=== PATIENT | female | born 1960 | race Caucasian/White ===

== ENCOUNTER 2018-03-24 11:47 | Outpatient (CLI) | payer OTHER | END 2018-03-24 11:48 | disposition home or self-care (01) | LOC: BICMRI 11:47 | PROVIDERS: ATTEND Orthopaedic Surgery | DX: M75.101 Unspecified rotator cuff tear or rupture of right shoulder, not specified as traumatic (principal); M62.511 Muscle wasting and atrophy, not elsewhere classified, right shoulder ==

== ENCOUNTER 2018-03-25 14:05 | Outpatient (CLI) | payer OTHER ==
[2018-03-25 15:27] LABS: #Basophils 0.1 thou/uL (0.0-0.2); #Eosinphils 0.1 thou/uL (0.0-0.7); #Lymphocytes 1.7 thou/uL (1.20-3.40); #Monocytes 0.3 thou/uL (0.11-0.59); #Neutrophils 4.2 thou/uL (1.40-6.50); %Basophils 1.3 % (0.0-1.0); %Eosinophils 0.8 % (0.0-10.0); %Lymphocytes 26.5 % (21.0-51.0); %Monocytes 5.2 % (0.0-10.0); %Neutrophils 66.1 % (42.0-75.0); Hemoglobin 13.7 g/dL (12.0-16.0); Mean Corpuscular HGB CONC 34.5 g/dL (32.0-36.0); Mean Corpuscular Hemoglobin 29.8 pg (27.0-31.0); Mean Corpuscular Volume 86.5 fL (78.0-98.0); Mean Platelet Volume 7.3 fL (7.4-10.4); Platelet Count 257 thou/uL (130-400); RBC Distribution Width 11.1 % (11.5-14.5); Red Blood Cell (RBC) Count 4.61 mill/uL (4.20-5.40); White Blood Cell (WBC) Count 6.3 thou/uL (4.8-10.8)
[2018-03-25 15:48] LABS: Anion Gap 12 mmol/L (10-20); BUN (Urea Nitrogen) 16 mg/dL (9.8-20.1); Calc. Creatinine Clearance 0 mL/min (70-130); Calcium 9.6 mg/dL (7.8-10.44); Carbon Dioxide 27 mmol/L (22-29); Chloride 105 mmol/L (98-107); Estimated GFR-MDRD 84; Glucose 98 mg/dL (70-105); Potassium 3.6 mmol/L (3.5-5.1); Sodium 140 mmol/L (136-145)
--- NOTE | 2018-03-26 13:42 | EKG ---
Test Reason : Blood Pressure : / mmHG Vent. Rate : 094 BPM Atrial Rate : 094 BPM P-R Int : 136 ms QRS Dur : 096 ms QT Int : 370 ms P-R-T Axes : 024 072 021 degrees QTc Int : 462 ms Normal sinus rhythm Normal ECG No previous ECGs available Confirmed by JOSEE PRITCHETT ([id number]) on 03/26/2018 1:42:33 PM Referred By: DOMINIQUE Confirmed By:JOSEE PRITCHETT
== END 2018-03-25 14:06 | disposition home or self-care (01) ==
LOC: LABBT 14:05
PROVIDERS: ATTEND Orthopaedic Surgery
DX: Z01.818 Encounter for other preprocedural examination (principal); M75.101 Unspecified rotator cuff tear or rupture of right shoulder, not specified as traumatic
CPT/HCPCS: 80048; 85025; 93005; 93010

== ENCOUNTER 2018-04-01 07:08 | Day surgery (SDC) | payer OTHER ==
[2018-03-25 14:28] VITALS: BMI 25.3
[2018-04-01] MEDS ORDERED: Fentanyl 100 MCG/2 ML VIAL ONE ×2 (07:40→07:52)
[2018-04-01] MEDS ORDERED: Midazolam HCl 2 mg/2 ml Vial ONE ×2 (07:40→07:52)
[2018-04-01] MEDS ORDERED: Ondansetron HCl/PF 4 MG/2 ML Vial IVP PRN (08:05)
[2018-04-01] MEDS ORDERED: Promethazine HCl 25 MG/ML VIAL IM PRN (08:05)
[2018-04-01] MEDS ORDERED: HYDROcodone/Acetaminophen 10/325 mg Tablet PO PRN ×2 (08:05)
[2018-04-01] MEDS ORDERED: Zolpidem Tartrate 5 MG TAB PO PRN (08:05)
[2018-04-01] MEDS ORDERED: traMADol HCl 50 MG TAB PO PRN ×2 (08:05)
[2018-04-01] MEDS ORDERED: Ropivacaine HCl/PF 1,100 MG in Sodium Chloride 0.9% 440 ML NERVE BLCK SCH (08:05)
[2018-04-01] MEDS ORDERED: Ketorolac Tromethamine 30 MG/ML VIAL IVP PRN (08:05)
[2018-04-01] MEDS ORDERED: Fentanyl 100 MCG/2 ML VIAL IV PRN (08:06)
[2018-04-01] MEDS ORDERED: CEFAZOLIN/Water 2 GM/20 ML SYRINGE ONE (08:20)
[2018-04-01] MEDS ORDERED: Ropivacaine 0.2% HCl/PF (40 MG/20 ML VIAL) ONE (10:46)
[2018-04-01] MEDS ORDERED: Ropivacaine 0.5% HCl/PF (150 MG/30 ML VIAL) ONE (10:46)
[2018-04-01] MEDS ORDERED: Glycopyrrolate 0.2 MG/ML 5 ML SYRINGE ONE (11:30)
[2018-04-01] MEDS ORDERED: Dexamethasone 20 MG/5 ML VIAL ONE (11:30)
[2018-04-01] MEDS ORDERED: PROPOFOL 200 MG/20 ML VIAL ONE (11:30)
[2018-04-01] MEDS ORDERED: PHENYLEPHRINE-NS 100 MCG/ML 10 ML SYRINGE ONE (11:30)
[2018-04-01] MEDS ORDERED: Ondansetron HCl/PF 4 MG/2 ML Vial ONE (11:30)
--- NOTE | 2018-04-01 15:31 | OP ---
DATE OF PROCEDURE: 04/01/2018 PREOPERATIVE DIAGNOSIS: Massive rotator cuff tear, right. POSTOPERATIVE DIAGNOSIS: Massive rotator cuff tear, right. SURGEON: Nemesio Mckeon M.D. CLAIM APPROVER: Lars Low PA-C. BLOOD LOSS: Minimal. SPECIMEN: None. DRAINS: None. COMPLICATIONS: None. NARRATIVE REPORT: The patient was taken to the operating where general anesthesia was induced. Righ t arm was prepped and draped in the usual sterile fashion. I made an anterior incision. Anterior an d inferior acromioplasty was performed of the deltoid was taken down. The rotator cuff tear was mass taina. I placed several traction sutures and gradually mobilized the cuff until I could deliver back t o bleeding bone at the articular cartilage margin. Three corkscrew suture anchors were placed to the bone. Sutures were passed through the bone through the cuff on the tuberosity site and the cuff omar e and tied with a good watertight repair, it was then reinforced with a double row repair using #2 [place] watertight repair of the massive rotator cuff tear. Irrigation performed. Hemostasis obtained. Deltoid was repaired back to bone with #1 Ethibond with 2-0 Vicryl, and skin was cl osed with tan.
== END 2018-04-01 11:50 | disposition home or self-care (01) ==
LOC: SDC 07:08
PROVIDERS: ATTEND Orthopaedic Surgery
PROC: 0LQ10ZZ Repair Right Shoulder Tendon, Open Approach (ICD-10-PCS; principal; 2018-04-01)
PROC: 0PB50ZZ Excision of Right Scapula, Open Approach (ICD-10-PCS; principal; 2018-04-01)
DX: S46.011A Strain of muscle(s) and tendon(s) of the rotator cuff of right shoulder, initial encounter (principal); F32.9 Major depressive disorder, single episode, unspecified; E78.00 Pure hypercholesterolemia, unspecified; W19.XXXA Unspecified fall, initial encounter; Z79.899 Other long term (current) drug therapy
CPT/HCPCS: 80048; 85025; C1713; G8984-GP-CK; G8985-GP-CK; G8986-GP-CK; J1100; J2250; J2405; J2704; J2795; J3010; J7050

== ENCOUNTER 2023-01-30 10:02 | Outpatient (CLI) | payer BC | END 2023-01-30 10:03 | disposition home or self-care (01) | LOC: BICMAMMO 10:02 | PROVIDERS: ATTEND Internal Medicine | DX: Z12.31 Encounter for screening mammogram for malignant neoplasm of breast (principal); N64.89 Other specified disorders of breast; Z98.82 Breast implant status | CPT/HCPCS: 77063; 77067 ==

== ENCOUNTER 2025-03-08 08:23 | Outpatient (CLI) | payer BC ==
[2025-03-08 08:55] LABS: Estimated GFR - POC 83.0
== END 2025-03-08 08:24 | disposition home or self-care (01) ==
LOC: SCSMRI 08:23
PROVIDERS: ATTEND Family Medicine
DX: R10.9 Unspecified abdominal pain (principal); M47.816 Spondylosis without myelopathy or radiculopathy, lumbar region; M47.815 Spondylosis without myelopathy or radiculopathy, thoracolumbar region; M47.817 Spondylosis without myelopathy or radiculopathy, lumbosacral region
CPT/HCPCS: 36415; 72158; 82565